=== PATIENT | female | born 1940 | race Two or more races ===

== ENCOUNTER → 2016-12-13 | Outpatient (CLI) | payer OTHER ==
[~2016-12-13] MED LIST: ASPI-231 OR; LEVO100T81 OR; MELA3TAB27 PO; PANT1INJ3 IV; PANT40TA2 PO; SIMV-8 OR
[2016-12-13 09:12] LABS: Urine RBC None Seen /hpf (0 - 4)
[2016-12-13 09:35] LABS: Urine Bilirubin Negative (Negative); Urine Blood Negative /uL (Negative); Urine Color Yellow (Yellow); Urine Glucose Normal (Normal); Urine Ketone Negative (Negative); Urine Nitrite Negative (Negative); Urine Squamous Epithelial Cell FEW /hpf (<5); Urine Urobilinogen Normal (Negative)
[2016-12-13 09:45] LABS: Basophils # (auto) 0 uL; Basophils % (auto) 0.5 % (0.0-2.0); CONDITION Y; Eosinophils # (auto) 0.1 uL; Eosinophils % (auto) 1.3 % (0.0-7.0); Hematocrit 41.5 % (36.0-46.0); Hemoglobin 13.7 g/dL (12.2-16.2); Lymphocytes % (auto) 39.5 % (10.0-50.0); Mean Corpuscular Hemoglobin 30.4 pg (28.0-32.0); Mean Platelet Volume 9.9 fL (7.4-10.4); Monocytes # (auto) 0.4 uL; Monocytes % (auto) 7.3 % (0.0-12.0); Neutrophils # (auto) 2.6 uL; Neutrophils % (auto) 51.4 % (37.0-80.0); Platelet Count (auto) 250 10^3/uL (140-450); White Blood Cell 5.1 10^3/uL (4.4-10.8)
[2016-12-13 10:04] LABS: Albumin 3.5 g/dL (3.4-5.0); BUN/Creatinine Ratio 21.2; Bilirubin, Total 0.6 mg/dL (0.2-1.0); Calcium 9.5 mg/dL (8.5-10.1); Potassium 4.2 mmol/L (3.5-5.1); Total Protein 7.4 g/dL (6.4-8.2)
== END | disposition home or self-care (01) ==
LOC: LAB 08:32
PROVIDERS: ATTEND Family Medicine
DX: Z00.00 Encounter for general adult medical examination without abnormal findings (principal); K21.9 Gastro-esophageal reflux disease without esophagitis; E03.9 Hypothyroidism, unspecified; Z68.30 Body mass index [BMI] 30.0-30.9, adult
CPT/HCPCS: 36415; 80053; 80061; 81001; 82306; 82607; 83036; 84443; 85025

== ENCOUNTER → 2017-01-24 | Outpatient (CLI) | payer OTHER | END | disposition home or self-care (01) | LOC: LAB 10:20 | PROVIDERS: ATTEND Family Medicine | DX: E03.9 Hypothyroidism, unspecified (principal); E53.8 Deficiency of other specified B group vitamins | CPT/HCPCS: 36415; 82607; 84443 ==

== ENCOUNTER → 2018-04-27 | Outpatient (CLI) | payer OTHER ==
[2018-04-27 12:22] LABS: Albumin 3.9 g/dL (3.4-5.0); Calcium 9.5 mg/dL (8.5-10.1); Potassium 4.3 mmol/L (3.5-5.1)
[2018-04-27 12:25] LABS: BUN/Creatinine Ratio 23.9; Bilirubin, Total 0.7 mg/dL (0.2-1.0); Total Protein 7.9 g/dL (6.4-8.2)
== END | disposition home or self-care (01) ==
LOC: LAB 11:25
PROVIDERS: ATTEND Family Medicine
DX: E78.49 Other hyperlipidemia (principal)
CPT/HCPCS: 36415; 80053; 80061; 82607

== ENCOUNTER → 2018-08-03 | Outpatient (CLI) | payer OTHER, MEDICARE ==
[2018-08-03 10:54] LABS: Urine Bacteria FEW /hpf (None Seen); Urine Blood Negative /uL (Negative); Urine Specific Gravity 1.013 (1.001-1.035); Urine WBC 1 /hpf (0 - 5)
[2018-08-03 12:00] LABS: Potassium 4.2 mmol/L (3.5-5.1)
[2018-08-03 12:44] LABS: Basophils # (auto) 0 uL; Basophils % (auto) 0.4 % (0.0-2.0); Eosinophils # (auto) 0.1 uL; Eosinophils % (auto) 1.1 % (0.0-7.0); Hemoglobin 13.6 g/dL (12.2-16.2); Lymphocytes # (auto) 1.9 uL; Lymphocytes % (auto) 32.1 % (10.0-50.0); Mean Corpuscular Hemoglobin 29.9 pg (28.0-32.0); Mean Corpuscular Hgb Conc. 32.5 g/dL (32.0-36.0); Monocytes # (auto) 0.5 uL; Neutrophils # (auto) 3.4 uL; Neutrophils % (auto) 58.4 % (37.0-80.0); Nucleated Red Blood Cells % 0.1 %; Platelet Count (auto) 239 10^3/uL (140-450); Red Blood Cells 4.56 10^6/uL (4.0-5.20); White Blood Cell 5.8 10^3/uL (4.4-10.8)
[2018-08-03 12:50] LABS: BUN/Creatinine Ratio 25.3; Bilirubin, Total 0.5 mg/dL (0.2-1.0); Calcium 9.4 mg/dL (8.5-10.1)
[2018-08-03 12:55] LABS: Albumin 3.6 g/dL (3.4-5.0); Total Protein 7.8 g/dL (6.4-8.2)
== END | disposition home or self-care (01) ==
LOC: LAB 10:17
PROVIDERS: ATTEND Internal Medicine
DX: K59.00 Constipation, unspecified (principal); K21.9 Gastro-esophageal reflux disease without esophagitis
CPT/HCPCS: 36415; 80053; 81001; 82150; 83690; 84439; 84443; 85025

== ENCOUNTER → 2018-10-11 | Outpatient (CLI) | payer OTHER ==
[2018-10-11 10:00] LABS: Basophils # (auto) 0 uL; Basophils % (auto) 0.4 % (0.0-2.0); Eosinophils # (auto) 0.1 uL; Eosinophils % (auto) 1.3 % (0.0-7.0); Hematocrit 44.3 % (36.0-46.0); Hemoglobin 14.7 g/dL (12.2-16.2); Lymphocytes # (auto) 1.7 uL; Mean Corpuscular Hemoglobin 30.3 pg (28.0-32.0); Mean Corpuscular Hgb Conc. 33.1 g/dL (32.0-36.0); Mean Corpuscular Volume 91.5 fL (80.0-100.0); Monocytes # (auto) 0.4 uL; Monocytes % (auto) 9.1 % (0.0-12.0); Neutrophils # (auto) 2.7 uL; Neutrophils % (auto) 55.2 % (37.0-80.0); Nucleated Red Blood Cells % 0.4 %; Platelet Count (auto) 229 10^3/uL (140-450); Red Blood Cells 4.84 10^6/uL (4.0-5.20); Red Cell Distribution Width 13.5 % (11.8-14.3); White Blood Cell 4.9 10^3/uL (4.4-10.8)
[2018-10-11 10:09] LABS: Urine Bacteria NONE SEEN /hpf (None Seen); Urine Blood Negative /uL (Negative); Urine Specific Gravity 1.011 (1.001-1.035); Urine WBC 1 /hpf (0 - 5)
[2018-10-11 10:13] LABS: INR 0.92 (0.9-1.15)
[2018-10-11 10:37] LABS: Albumin 3.7 g/dL (3.4-5.0); Anion Gap 5 (5-15); Blood Urea Nitrogen 17 mg/dL (7-18); Calcium 9.4 mg/dL (8.5-10.1); Carbon Dioxide 31 mmol/L (21-32); Chloride 106 mmol/L (98-107); Glucose 105 mg/dL (74-106); Lipase 77 U/L (73-393); Potassium 4.5 mmol/L (3.5-5.1); Sodium 142 mmol/L (136-145)
[2018-10-11 10:44] LABS: Alanine Aminotransferase 25 U/L (13-56); Alkaline Phosphatase 46 U/L (45-117); Amylase 78 U/L (25-115); Aspartate Aminotransferase 21 U/L (15-37); BUN/Creatinine Ratio 22.4; Bilirubin, Total 0.7 mg/dL (0.2-1.0); GFR African American 95 mL/min; GFR Non-African American 78 mL/min; Total Protein 7.7 g/dL (6.4-8.2)
== END | disposition home or self-care (01) ==
LOC: LAB 09:29
PROVIDERS: ATTEND Internal Medicine
DX: Z01.818 Encounter for other preprocedural examination (principal); K21.9 Gastro-esophageal reflux disease without esophagitis
CPT/HCPCS: 36415; 80053; 81001; 82150; 83690; 84439; 84443; 84484; 85025; 85610; 85652

== ENCOUNTER → 2019-01-04 | Outpatient (CLI) | payer OTHER ==
[2019-01-04 09:57] LABS: Urine WBC None Seen /hpf (0 - 5)
[2019-01-04 10:08] LABS: Urine Bacteria NONE SEEN /hpf (None Seen); Urine Blood Negative /uL (Negative); Urine Specific Gravity 1.011 (1.001-1.035)
== END | disposition home or self-care (01) ==
LOC: LAB 09:42
PROVIDERS: ATTEND Internal Medicine
DX: R73.01 Impaired fasting glucose (principal); R53.83 Other fatigue; E03.9 Hypothyroidism, unspecified
CPT/HCPCS: 36415; 81001; 83036; 84439; 84443

== ENCOUNTER → 2019-01-09 | Outpatient (CLI) | payer OTHER ==
[2019-01-09 09:06] LABS: Basophils # (auto) 0 uL; Basophils % (auto) 0.5 % (0.0-2.0); Eosinophils # (auto) 0.1 uL; Eosinophils % (auto) 1.5 % (0.0-7.0); Hematocrit 40.6 % (36.0-46.0); Hemoglobin 13.4 g/dL (12.2-16.2); Lymphocytes # (auto) 1.7 uL; Lymphocytes % (auto) 37.8 % (10.0-50.0); Mean Corpuscular Hemoglobin 30.2 pg (28.0-32.0); Mean Corpuscular Volume 91.4 fL (80.0-100.0); Monocytes # (auto) 0.4 uL; Monocytes % (auto) 8.9 % (0.0-12.0); Neutrophils # (auto) 2.3 uL; Neutrophils % (auto) 51.3 % (37.0-80.0); Platelet Count (auto) 222 10^3/uL (140-450); Red Blood Cells 4.44 10^6/uL (4.0-5.20); Red Cell Distribution Width 13.4 % (11.8-14.3); White Blood Cell 4.5 10^3/uL (4.4-10.8)
[2019-01-09 09:17] LABS: INR 0.94 (0.9-1.15); Partial Thromboplastin Time 25.9 sec (23.64-32.05)
[2019-01-09 09:46] LABS: Albumin 3.7 g/dL (3.4-5.0); Calcium 9.7 mg/dL (8.5-10.1); Potassium 4.5 mmol/L (3.5-5.1)
[2019-01-09 09:49] LABS: BUN/Creatinine Ratio 24.4
[2019-01-09 09:52] LABS: Bilirubin, Total 0.5 mg/dL (0.2-1.0); Total Protein 7.2 g/dL (6.4-8.2)
[2019-01-10 10:20] LABS: Urine Blood Negative /uL (Negative); Urine Specific Gravity 1.015 (1.001-1.035)
== END | disposition home or self-care (01) ==
LOC: LAB 08:39
PROVIDERS: ATTEND Specialist
DX: Z01.82 Encounter for allergy testing (principal); H25.11 Age-related nuclear cataract, right eye; D68.318 Other hemorrhagic disorder due to intrinsic circulating anticoagulants, antibodies, or inhibitors; Z79.01 Long term (current) use of anticoagulants
CPT/HCPCS: 36415; 80053; 81003; 85025; 85610; 85730

== ENCOUNTER → 2019-02-06 | Outpatient (CLI) | payer OTHER ==
[2019-02-06 11:36] LABS: Basophils # (auto) 0 uL; Basophils % (auto) 0.5 % (0.0-2.0); Eosinophils # (auto) 0 uL; Hematocrit 42.1 % (36.0-46.0); Hemoglobin 13.9 g/dL (12.2-16.2); Lymphocytes # (auto) 1.9 uL; Lymphocytes % (auto) 37.8 % (10.0-50.0); Mean Corpuscular Volume 90.8 fL (80.0-100.0); Monocytes # (auto) 0.4 uL; Monocytes % (auto) 8.1 % (0.0-12.0); Neutrophils # (auto) 2.7 uL; Neutrophils % (auto) 52.6 % (37.0-80.0); Platelet Count (auto) 216 10^3/uL (140-450); Red Blood Cells 4.63 10^6/uL (4.0-5.20); Red Cell Distribution Width 13.3 % (11.8-14.3); White Blood Cell 5.1 10^3/uL (4.4-10.8)
[2019-02-06 11:47] LABS: Albumin 3.5 g/dL (3.4-5.0); Calcium 9.8 mg/dL (8.5-10.1); Potassium 4.5 mmol/L (3.5-5.1)
[2019-02-06 11:51] LABS: BUN/Creatinine Ratio 18.4; Bilirubin, Total 0.6 mg/dL (0.2-1.0); Total Protein 7.4 g/dL (6.4-8.2)
[2019-02-06 11:52] LABS: INR 0.95 (0.9-1.15); Partial Thromboplastin Time 25.4 sec (23.64-32.05)
[2019-02-06 14:13] LABS: Urine Blood Negative /uL (Negative); Urine Specific Gravity 1.009 (1.001-1.035)
== END | disposition home or self-care (01) ==
LOC: LAB 10:23
PROVIDERS: ATTEND Specialist
DX: Z01.812 Encounter for preprocedural laboratory examination (principal); H25.11 Age-related nuclear cataract, right eye; D68.311 Acquired hemophilia; Z79.01 Long term (current) use of anticoagulants
CPT/HCPCS: 36415; 80053; 81003; 85025; 85610; 85730

== ENCOUNTER → 2019-09-30 | Outpatient (CLI) | payer OTHER ==
[~2019-09-30] MED LIST changes: +LOSA25TA38 PO
[2019-09-30 11:21] LABS: Basophils # (auto) 0 10 ^3/uL (0-0.2); Basophils % (auto) 0.5 % (0.0-2.0); Eosinophils # (auto) 0.1 10 ^3/uL (0-0.8); Eosinophils % (auto) 1.2 % (0.0-7.0); Hematocrit 42.6 % (36.0-46.0); Hemoglobin 14.2 g/dL (12.2-16.2); Lymphocytes # (auto) 1.8 10 ^3/uL (0.4-5.4); Lymphocytes % (auto) 33.9 % (10.0-50.0); Mean Corpuscular Hemoglobin 30.8 pg (28.0-32.0); Mean Corpuscular Hgb Conc. 33.3 g/dL (32.0-36.0); Mean Corpuscular Volume 92.3 fL (80.0-100.0); Monocytes # (auto) 0.4 10 ^3/uL (0-1.3); Monocytes % (auto) 7.6 % (0.0-12.0); Neutrophils # (auto) 3.1 10 ^3/uL (1.6-8.6); Neutrophils % (auto) 56.8 % (37.0-80.0); Nucleated Red Blood Cells % 0.1 %; Platelet Count (auto) 243 10^3/uL (140-450); Red Blood Cells 4.61 10^6/uL (4.0-5.20); Red Cell Distribution Width 13.8 % (11.8-14.3); White Blood Cell 5.4 10^3/uL (4.4-10.8)
[2019-09-30 11:34] LABS: Partial Thromboplastin Time 26.5 sec (23.64-32.05)
[2019-09-30 11:55] LABS: Albumin 3.7 g/dL (3.4-5.0); Calcium 9.5 mg/dL (8.5-10.1); Potassium 4.2 mmol/L (3.5-5.1)
[2019-09-30 12:00] LABS: BUN/Creatinine Ratio 27.1; Bilirubin, Total 0.6 mg/dL (0.2-1.0); Total Protein 8.1 g/dL (6.4-8.2)
== END | disposition home or self-care (01) ==
LOC: LAB 11:04
PROVIDERS: ATTEND Internal Medicine
DX: Z01.20 Encounter for dental examination and cleaning without abnormal findings (principal)
CPT/HCPCS: 36415; 80053; 85025; 85610; 85730

== ENCOUNTER 2019-10-02 06:47 | Inpatient (IN) | payer OTHER ==
[~2019-10-02] VITALS: Ht 162.6 cm; Wt 82.4 kg
[~2019-10-02 06:47] MED LIST changes: -PANT1INJ3 IV
[2019-10-02] MEDS ORDERED: IOHEXOL 350 MG/ML 100ML IJ ONE ×2 (07:30→09:13)
[2019-10-02] MEDS ORDERED: LIDOCAINE 2%HCL (LOCAL ANESTH.) INJ 20ML MDV ONE (07:30)
[2019-10-02] MEDS ORDERED: VERAPAMIL 2.5MG/ML INJ 2ML VIAL IV ONE (07:56)
[2019-10-02] MEDS ORDERED: MIDAZOLAM HCL 1MG/1ML-2 ML VIAL ONE (07:56)
[2019-10-02] MEDS ORDERED: fentaNYL CITRATE 100 MCG/2 ML VL ONE (07:56)
[2019-10-02] MEDS ORDERED: ANGIOMAX 250 MG VIAL IV ONE (07:56)
[2019-10-02] MEDS ORDERED: HEPARIN SODIUM (PORCINE) 5000 UNITS/ML 1ML VIAL ONE (07:57)
[2019-10-02] MEDS ORDERED: SODIUM CHL 0.9% 50 ML ONE (07:57)
[2019-10-02] MEDS ORDERED: ASPirin 325 MG TAB ONE (09:17)
[2019-10-02] MEDS ORDERED: CLOPIDOGREL 300 MG TAB ONE (09:17)
[2019-10-02] MEDS ORDERED: HYDROcodone-ACET 5/325MG TAB PO PRN (09:45)
[2019-10-02] MEDS ORDERED: ACETAMINOPHEN 500 MG TAB PO PRN (09:45)
[2019-10-02] MEDS ORDERED: ONDANSETRON HCL 4 MG/2 ML VIAL IV PRN (09:45)
[2019-10-02] MEDS ORDERED: NITROGLYCERIN 0.4 MG SL TAB SL PRN (09:45)
[2019-10-02] MEDS ORDERED: MORPHINE SULF INJ 2 MG/ML SYRINGE 1ML IV PRN (09:45)
[2019-10-02] MEDS: PANTOPRAZOLE 40 MG TAB PO SCH ×2 (09:55→10:00)
[2019-10-02] MEDS: ASPirin-EC 81 mg tab PO SCH ×2 (09:55→10:00)
[2019-10-02] MEDS ORDERED: LOSARTAN POTASSIUM 25 MG TAB PO SCH (10:00)
[2019-10-02] MEDS ORDERED: LEVOTHYROXINE SODIUM 25 MCG TAB PO SCH (10:00)
[2019-10-02] MEDS ORDERED: LOSARTAN POTASSIUM 25 MG TAB PO ONE (10:00)
[2019-10-02] MEDS ORDERED: PANTOPRAZOLE 40 MG TAB PO ONE (10:00)
[2019-10-02] MEDS ORDERED: CLOPIDOGREL BISULFATE 75 MG TAB PO ONE (10:00)
[2019-10-02] MEDS ORDERED: CLOPIDOGREL BISULFATE 75 MG TAB PO SCH (10:00)
[2019-10-02] MEDS ORDERED: LEVOTHYROXINE SODIUM 25 MCG TAB PO ONE (10:00)
[2019-10-02 11:36] VITALS: BP 134/63
[2019-10-02 13:30] VITALS: BP 134/64
[2019-10-02 17:00] VITALS: BP 121/66
[2019-10-02 21:38] VITALS: BP 119/53
[2019-10-02] MEDS ORDERED: ATORVASTATIN 20 MG TAB PO SCH (22:00)
[2019-10-03 05:21] VITALS: BP 114/62
[2019-10-03] MEDS ORDERED: LEVOTHYROXINE SODIUM 25 MCG TAB PO SCH (07:00)
[2019-10-03] MEDS ORDERED: LEVOTHYROXINE SODIUM 100 MCG TAB PO SCH (07:00)
[2019-10-03 09:31] VITALS: BP 116/59
[2019-10-03] MEDS ORDERED: LOSARTAN POTASSIUM 25 MG TAB PO SCH (10:00)
[2019-10-03] MEDS: PANTOPRAZOLE 40 MG TAB PO SCH (10:10)
[2019-10-03] MEDS: ASPirin-EC 81 mg tab PO SCH (10:11)
[2019-10-03 12:56] VITALS: BP 116/47
[2019-10-03] MEDS ORDERED: CLOPIDOGREL BISULFATE 75 MG TAB PO ONE (13:15)
[2019-10-03 13:21] VITALS: BP 116/59
[2019-10-04] MEDS ORDERED: CLOPIDOGREL BISULFATE 75 MG TAB PO SCH (10:00)
== END 2019-10-03 14:30 | disposition home or self-care (01) | DRG 247 ==
LOC: CATH 06:47 → TELE-WESTW 11:49
PROVIDERS: ADMIT Internal Medicine; ATTEND Internal Medicine
PROC: 027034Z Dilation of Coronary Artery, One Artery with Drug-eluting Intraluminal Device, Percutaneous Approach (ICD-10-PCS; principal; 2019-10-02)
PROC: B2111ZZ Fluoroscopy of Multiple Coronary Arteries using Low Osmolar Contrast (ICD-10-PCS; 2019-10-02)
PROC: B2151ZZ Fluoroscopy of Left Heart using Low Osmolar Contrast (ICD-10-PCS; 2019-10-02)
PROC: 4A023N7 Measurement of Cardiac Sampling and Pressure, Left Heart, Percutaneous Approach (ICD-10-PCS; 2019-10-02)
DX: I25.10 Atherosclerotic heart disease of native coronary artery without angina pectoris (principal); E78.5 Hyperlipidemia, unspecified; E66.9 Obesity, unspecified; I10 Essential (primary) hypertension; E03.9 Hypothyroidism, unspecified; Z79.02 Long term (current) use of antithrombotics/antiplatelets; Z68.31 Body mass index [BMI] 31.0-31.9, adult
CPT/HCPCS: 36415; 82565; 87635; 92928; 93458; 99152; 99153; C1874; G0378; J2250

== ENCOUNTER → 2019-10-11 | Outpatient (CLI) | payer OTHER ==
[~2019-10-11] MED LIST changes: +ALBUTEROL SULF 2.5 MG/0.5ML(0.5%) NEB SOLN ONE
== END | disposition home or self-care (01) ==
LOC: RT 08:36
PROVIDERS: ATTEND Internal Medicine
DX: M35.02 Sjogren syndrome with lung involvement (principal); R07.9 Chest pain, unspecified
CPT/HCPCS: 94727; 94729

== ENCOUNTER → 2019-11-19 | Outpatient (CLI) | payer OTHER ==
[~2019-11-19] MED LIST changes: -ALBUTEROL SULF 2.5 MG/0.5ML(0.5%) NEB SOLN ONE
[2019-11-19 09:07] LABS: Albumin 3.4 g/dL (3.4-5.0); Calcium 9.4 mg/dL (8.5-10.1); Potassium 4.3 mmol/L (3.5-5.1)
[2019-11-19 09:12] LABS: BUN/Creatinine Ratio 33.3; Bilirubin, Total 0.5 mg/dL (0.2-1.0); Total Protein 7.3 g/dL (6.4-8.2)
== END | disposition home or self-care (01) ==
LOC: LAB 07:43
PROVIDERS: ATTEND Internal Medicine
DX: J84.89 Other specified interstitial pulmonary diseases (principal); E78.5 Hyperlipidemia, unspecified; E03.9 Hypothyroidism, unspecified; M35.00 Sjogren syndrome, unspecified
CPT/HCPCS: 36415; 80053; 80061; 83036; 84439; 84443; 86225; 86235